=== PATIENT | male | born 1995 | race Caucasian/White ===

== ENCOUNTER 2024-10-06 16:25 | Emergency (ER) | payer BC ==
[~2024-10-06] VITALS: Ht 180.3 cm; Wt 82.0 kg
[2024-10-06 16:32] VITALS: O2SAT 99
[2024-10-06 17:30] VITALS: BP 128/80; PULSE 77; RESP 18; TEMP 36.6; O2SAT 99
[2024-10-06] MEDS: ACETAMINOPHEN 325MG TABLET PO ONE (17:30)
== END 2024-10-06 17:30 | disposition home or self-care (01) ==
LOC: ER 16:25
DX: S83.006A Unspecified dislocation of unspecified patella, initial encounter (principal); X58.XXXA Exposure to other specified factors, initial encounter; Y93.89 Activity, other specified; Y92.89 Other specified places as the place of occurrence of the external cause; Y99.8 Other external cause status
CPT/HCPCS: 27560; 73562; 99283; 99284